=== PATIENT | male | born 1990 | race African-American/Black ===

== ENCOUNTER 2021-03-19 12:45 | Emergency (ER) | payer MEDICAID ==
[~2021-03-19] VITALS: Ht 170.2 cm; Wt 100.0 kg
[2021-03-19] MEDS ORDERED: PSEUDOEPHEDRINE HCL 30MG TABLET PO STA (14:51)
[2021-03-19] MEDS ORDERED: PSEU-207 MT (15:38)
[2021-03-19] MEDS ORDERED: FLUT16SP15 BOTHNSTRLS (15:38)
[2021-03-19] MEDS ORDERED: DIPH-909 PO (15:55)
[2021-03-19 16:02] VITALS: BP 158/92
== END 2021-03-19 16:05 | disposition home or self-care (01) ==
LOC: ER 12:45
DX: J30.89 Other allergic rhinitis (principal); R51.9 Headache, unspecified
CPT/HCPCS: 99282

== ENCOUNTER 2021-03-26 11:05 | Emergency (ER) | payer MEDICAID ==
[~2021-03-26] VITALS: Ht 172.7 cm; Wt 80.0 kg
[~2021-03-26 11:05] MED LIST: DIPH-909 PO; FLUT16SP15 BOTHNSTRLS; PSEU-207 MT
[2021-03-26 11:18] VITALS: BP 158/109
[2021-03-26] MEDS ORDERED: PSEU-207 MT (11:30)
== END 2021-03-26 11:59 | disposition home or self-care (01) ==
LOC: ER 11:05
DX: R09.81 Nasal congestion (principal)
CPT/HCPCS: 99282